=== PATIENT | male | born 1990 | race Caucasian/White ===

== ENCOUNTER 2016-11-03 11:15 | Emergency (ER) | payer OTHER ==
[2016-11-03 11:20] VITALS: RESP 16; TEMP 98.1; O2SAT 96
--- NOTE | 2016-11-03 11:22 | EDPHY ---
H & P Stated Complaint: Twisted R foot last evening Time Seen by Provider: 11/03/16 11:21 - Personal History Current Tetanus Diphtheria and Acellular Pertussis (TDAP): Yes - Medical/Surgical History Other PMH: neg - Social History Smoking Status: Never smoked Constitutional: Initial Vital Signs Temperature (C) 36.7 C 11/03/16 11:17 Heart Rate 94 11/03/16 11:17 Respiratory Rate 16 11/03/16 11:17 Blood Pressure 122/93 H 11/03/16 11:17 O2 Sat (%) 96 11/03/16 11:17 O2 Delivery Mode Room Air Allergies/Adverse Reactions: No Known Allergies Allergy (Verified 11/03/16 11:17) Home Medications: Medication Instructions Recorded HYDROcodone/APAP [[place] 1 - 2 each PO Q4-6PRN PRN #20 tab 11/03/16] Medical Decision Making ED Course/Re-evaluation: CHIEF COMPLAINT: Right foot injury HISTORY OF PRESENT ILLNESS: The patient is a 26 y/o male complaining of lateral right foot pain after rolling his ankle yesterday. He describes walking down stairs and then his right foot slipped with his foot rotating medially. He had immediate pain to the lateral aspect of his foot with some mild pain on the medial foot underneath his malleolus. No weakness or paresthesias. No other injuries. No pertinent medical history. REVIEW OF SYSTEMS: A 10 point review of systems was performed and is negative with the exception of the elements mentioned in the history of present illness. PHYSICAL EXAM: HR, BP, O2 Sat, RR. Temp noted General Appearance: Alert, well hydrated, appropriate, and non-toxic appearing. Musculoskeletal: Moderate tenderness to base of 5th metatarsal on right foot. Other extremities have normal active ROM of all extremities, atraumatic. Neurological: Alert, appropriate, and interactive. Normal CMS in right foot. Skin: No rashes, good turgor, no nodules on palpation. Mild swelling and redness over lateral aspect of right foot. Past medical history: Denies Past surgical history: Noncontributory Family history: Noncontributory Social history: Employed DIAGNOSTICS/PROCEDURES/CRITICAL CARE TIME: Study: Right foot x-ray Indication: Pain, trauma Results: Right foot x-ray was obtained. The results of the study are minimally displaced fracture of base 5th metatarsal. Radiologist report pending I viewed the images myself on the PACS system. DIFFERENTIAL DIAGNOSIS: The differential diagnosis for the patient's trauma included but was not limited to foot fracture, foot sprain, long bone fracture. MEDICAL DECISION MAKING: This is a 26 y/o male presenting with tenderness to the base of his 5th metatarsal on the right foot secondary to rolling his foot yesterday. He has tenderness, redness, and swelling at the site with difficult walking due to pain. X-ray confirms fracture at the base of his 5th metatarsal. He will be placed in a post op shoe and given a script for [place] with general fracture care instructions. He's been referred to ortho for follow up. Return precautions given. He is comfortable with this plan. Departure - Departure Disposition: Home, Routine, Self-Care Clinical Impression: Fracture of 5th metatarsal Qualifiers: Encounter type: initial encounter Fracture type: closed Fracture alignment: nondisplaced Laterality: right Qualifier Code: (S92.354A) Nondisplaced fracture of fifth metatarsal bone, right foot, initial encounter for closed fracture Condition: Good Instructions: Foot Fracture in Adults (ED) Additional Instructions: 1. Take 600mg ibuprofen every 6-8 hours for the next 3-4 days. 2. Use [place] for pain not controlled by ibuprofen. 3. Apply ice to sore areas and keep foot elevated when possible. 4. Wear post op shoe until follow up. Use crutches to move, partial weight bearing okay. 5. Follow up with orthopedic surgeon in 4-5 days. 6. Return to the ED for severe pain, dramatic increase in redness or swelling, weakness or numbness in your toes, or other worsening of condition Referrals: OUT OF STATE,. [Primary Care Provider] - As per Instructions Cullen Kenr MD [Medical Doctor] - As per Instructions Prescriptions: HYDROcodone/APAP 10/325 [[place] 10/325] 1 - 2 each PO Q4-6PRN PRN #20 tab PRN Reason: Pain, Moderate Report Scribed for: Paul Polanco Report Scribed by: Milvia Bullard Date of Report: 11/03/16 Time of Report: 12:06
[2016-11-03 12:21] VITALS: BP 142/87; PULSE 77
--- NOTE | 2016-11-03 12:28 | DX ---
Right Foot 3 Views History: Rolled ankle falling down stairs 2 days ago, pain. Comparison: None available. Findings: There is a transverse nondisplaced fracture through the base of the fifth metatarsal. Align ment is normal. Bone mineralization is normal. Impression: Transverse nondisplaced fracture through the base of the fifth metatarsal.
== END 2016-11-03 12:21 | disposition home or self-care (01) ==
DX: S92.354A Nondisplaced fracture of fifth metatarsal bone, right foot, initial encounter for closed fracture (principal); W18.40XA Slipping, tripping and stumbling without falling, unspecified, initial encounter; Y93.01 Activity, walking, marching and hiking
CPT/HCPCS: L3260